=== PATIENT | female | born 1975 | race Caucasian/White ===

== ENCOUNTER 2017-01-22 19:49 | Emergency (ER) | payer MEDICAID ==
[2017-01-22 20:24] LABS: URINE APPEARANCE CLEAR; URINE BILIRUBIN NEGATIVE (NEGATIVE); URINE BLOOD LARGE (NEGATIVE); URINE COLOR YELLOW; URINE GLUCOSE (UA) NEGATIVE (NEGATIVE); URINE KETONE NEGATIVE (NEGATIVE); URINE LEUKOCYTE ESTERASE LARGE (NEGATIVE); URINE NITRITE NEGATIVE (NEGATIVE); URINE PROTEIN TRACE (NEGATIVE); URINE UROBILINOGEN 0.2 E.U./dL (0.20 - 1.00)
[2017-01-22 20:31] LABS: URINE BACTERIA 1+; URINE EPITHELIAL CELLS 0 - 2 (FEW); URINE WBC >50 (0-2/hpf)
[2017-01-22] MEDS: 0.9 % SODIUM CHLORIDE 1,000 ML BAG IV ONE (21:10)
[2017-01-22] MEDS: ONDANSETRON HCL IV 4 MG/2 ML VIAL IV ONE (21:11)
[2017-01-22] MEDS: HYDROMORPHONE HCL 1 MG/ML CPJ IVP ONE (21:15)
[2017-01-22 21:21] LABS: BASO % 0.4 % (0-6); EOS % 3.1 % (0-6); HEMATOCRIT 41.6 % (35.0-47.0); HEMOGLOBIN 13.9 gm/dl (11.6-16.0); LYMPH % 29.6 % (16-45); MEAN CELL VOLUME 88.3 fl (81-97); MEAN CORPUSCULAR HEMOGLOBIN 29.5 pg (27-33); MEAN CORPUSCULAR HGB CONC 33.4 g/dl (32-36); MEAN PLATELET VOLUME 10.5 fl (7.4-10.4); MONO % 6.9 % (0-9); PLATELET COUNT 336 K/uL (130-400); RED BLOOD COUNT 4.71 M/uL (3.80-5.40); RED CELL DISTRIBUTION WIDTH 13.8 % (11.5-14.5); WHITE BLOOD COUNT W/O DIFF 12.1 K/uL (4.2-12.2)
[2017-01-22 21:32] LABS: ANION GAP 6.8 (7-16); BLOOD UREA NITROGEN 5 mg/dL (7-17); CARBON DIOXIDE 25.2 mmol/L (22-30); CREATININE 0.7 mg/dL (0.52-1.04); EST GLOMERULAR FILTRATION RATE > 60 ml/min; GLUCOSE,RANDOM 96 mg/dL (70-110)
[2017-01-22] MEDS: ONDANSETRON HCL IV 4 MG/2 ML VIAL IVP ONE (21:44)
--- NOTE | 2017-01-22 21:47 | Emergency Department Record ---
History of Present Illness - General Chief complaint: Flank Pain Stated complaint: POSS KIDNEY STONES Time Seen by Provider: 01/22/17 20:42 Source: Patient Mode of Arrival: Ambulatory Limitations: No limitations - History of Present Illness Initial comments: pt is having bilateral flank pain and thinks she has kidney stones. she states she had signs of a uti and then had gravel in the toilet. she has had nausea but no vomiting. MD Complaint: Other Onset/Timin -: Days(s) Location: Suprapubic Radiation: L flank, R flank Severity scale (1-10): 6 Quality: Sharp Consistency: Intermittent Worsens with: Urination Patient : No LMP Date: 01/03/17 Gestational Age (wks) based on LMP: 2 Associated Symptoms: Nausea/vomiting - Related Data Home Medications Medication Instructions Recorded Confirmed Last Taken Fluticasone Propionate [Flovent 50 mcg IH DAILY 01/27/16 01/27/16 Unknown Diskus] Naproxen [Naprosyn] 250 mg PO Q12H 01/22/17 01/22/17 Unknown Previous Rx's Medication Instructions Recorded Cephalexin [Keflex] 500 mg PO BID #14 cap 01/22/17 Allergies Allergy/AdvReac Type Severity Reaction Status Date / Time codeine Allergy ANAPHYLAXIS Verified 01/27/16 17:31 Penicillins Allergy ANAPHYLAXIS Verified 01/27/16 17:31 prednisone Allergy BEHAVIORAL Verified 01/27/16 17:31 CHANGES sulfamethoxazole Allergy SWELLING Verified 01/22/17 21:07 [From Bactrim] (GENERAL) trimethoprim [From Bactrim] Allergy SWELLING Verified 01/22/17 21:07 (GENERAL) ibuprofen AdvReac HYPERSENSIT Verified 01/27/16 17:31 IVITY Travel Screening - Travel/Exposure Within Last 30 Days Have you traveled within the last 30 days?: No - Travel Symptoms Symptom Screening: None Review of Systems Reviewed: No additional complaints except as noted below Constitutional: Reports: As per HPI. Denies: Chills, Fever, Malaise, Night sweats, Weakness, Weight change Eyes: Reports: As per HPI. Denies: Eye discharge, Eye pain, Photophobia, Vision change ENT: Reports: As per HPI. Denies: Congestion, Dental pain, Ear pain, Epistaxis , Hearing loss, Throat pain Respiratory: Reports: As per HPI. Denies: Cough, Dyspnea, Hemoptysis, Stridor, Wheezes Cardiovascular: Reports: As per HPI. Denies: Arrhythmia, Chest pain, Dyspnea on exertion, Edema, Murmurs, Orthopnea, Palpitations, Paroxysmal nocturnal dyspnea, Rheumatic Fever, Syncope Endocrine: Reports: As per HPI. Denies: Fatigue, Heat or cold intolerance, Polydipsia, Polyuria Gastrointestinal: Reports: As per HPI. Denies: Abdominal pain, Constipation, Diarrhea, Hematemesis, Hematochezia, Melena, Nausea, Vomiting Genitourinary: Reports: As per HPI. Denies: Abnormal menses, Discharge, Dyspareunia, Dysuria, Frequency, Hematuria, Incontinence, Retention, Urgency Musculoskeletal: Reports: As per HPI. Denies: Arthralgia, Back pain, Gout, Joint swelling, Myalgia, Neck pain Skin: Reports: As per HPI. Denies: Bruising, Change in color, Change in hair/ nails, Lesions, Pruritus, Rash Neurological: Reports: As per HPI. Denies: Abnormal gait, Confusion, Headache, Numbness, Paresthesias, Seizure, Tingling, Tremors, Vertigo, Weakness Psychiatric: Reports: As per HPI. Denies: Anxiety, Auditory hallucinations, Depression, Homicidal thoughts, Suicidal thoughts, Visual hallucinations Hematological/Lymphatic: Reports: As per HPI. Denies: Anemia, Blood Clots, Easy bleeding, Easy bruising, Swollen glands Past Medical History - SOCIAL HISTORY Smoking Status: Current every day smoker - RESPIRATORY Hx Respiratory Disorders: Yes Hx Asthma: Yes - CARDIOVASCULAR Hx Cardio Disorders: Yes Hx Heart Attack: Yes (2005) - NEURO Hx Neuro Disorders: Yes Hx Dizziness: Yes Hx Neuropathy: Yes - GI Hx GI Disorders: Yes Hx Reflux: Yes - Hx Genitourinary Disorders: No - ENDOCRINE Hx Endocrine Disorders: No - MUSCULOSKELETAL Hx Musculoskeletal Disorders: No - PSYCH Hx Psych Problems: Yes Hx Anxiety: Yes Hx Depression: Yes - HEMATOLOGY/ONCOLOGY Hx Hematology/Oncology Disorders: Yes Hx Anemia: Yes Family Medical History Any Significant Family History?: Yes Family Hx Comment (NOT TO BE USED IN PLACE OF ITEMS BELOW): Aunt w/brain issues Hx Diabetes: Grandparents Hx Heart Disease: Mother, Grandparents Hx Stroke: Mother Physical Exam - General General Appearance: Alert, Oriented x3, Cooperative, Mild distress - Head Head exam: Normal inspection - Eye Eye exam: Normal appearance, PERRL, EOMI Pupils: Normal accommodation - ENT ENT exam: Normal exam, Mucous membranes moist, Normal external ear exam, Normal orophraynx Ear exam: Normal external inspection. negative: External canal tenderness Nasal Exam: Normal inspection. negative: Discharge, Sinus tenderness Mouth exam: Normal external inspection, Tongue normal Teeth exam: Normal inspection. negative: Dental caries Throat exam: Normal inspection. negative: Tonsillar erythema, Tonsillar exudate - Neck Neck exam: Normal inspection, Full ROM. negative: Tenderness - Respiratory Respiratory exam: Normal lung sounds bilaterally. negative: Respiratory distress - Cardiovascular Cardiovascular Exam: Regular rate, Normal rhythm, Normal heart sounds - GI/Abdominal GI/Abdominal exam: Soft, Normal bowel sounds, Tenderness - Rectal Rectal exam: Deferred - exam: Deferred - Extremities Extremities exam: Normal inspection, Full ROM, Normal capillary refill. negative: Tenderness - Back Back exam: Reports: Normal inspection, Full ROM. Denies: Muscle spasm, Rash noted, Tenderness - Neurological Neurological exam: Alert, CN II-XII intact, Normal gait, Oriented X3 - Psychiatric Psychiatric exam: Normal affect, Normal mood - Skin Skin exam: Dry, Intact, Normal color, Warm Course Vital Signs 01/22/17 01/22/17 20:13 21:20 Temperature 97.9 F Pulse Rate [ 92 H 94 H Pulse Ox Probe] Respiratory 20 18 Rate Blood Pressure 132/102 125/91 [Left Arm] Pulse Ox 99 98 Medical Decision Making - Management Options MDM Management: Additional Work-up Planned (e.g. ADM/Transfer/OP Study) - Data Complexity MDM Data: Labs Ordered and/or Reviewed, X-Ray Ordered and/or Reviewed - Lab Data Result diagrams: 01/22/17 21:14 01/22/17 21:14 Lab Results 01/22/17 01/22/17 01/22/17 Range/Units 20:25 20:55 21:14 WBC 12.1 (4.2-12.2) K/uL RBC 4.71 (3.80-5.40) M/uL Hgb 13.9 (11.6-16.0) gm/dl Hct 41.6 (35.0-47.0) % MCV 88.3 (81-97) fl MCH 29.5 (27-33) pg MCHC 33.4 (32-36) g/dl RDW 13.8 (11.5-14.5) % Plt Count 336 (130-400) K/uL MPV 10.5 H (7.4-10.4) fl Gran % 60.0 (47-80) % Lymphocytes % 29.6 (16-45) % Monocytes % 6.9 (0-9) % Eosinophils % 3.1 (0-6) % Basophils % 0.4 (0-6) % Sodium (136-145) mmol/L Potassium (3.5-5.1) mmol/L Chloride (98-107) mmol/L Carbon Dioxide (22-30) mmol/L Anion Gap (7-16) BUN (7-17) mg/dL Creatinine (0.52-1.04) mg/dL Estimated GFR ml/min Random Glucose (70-110) mg/dL Calcium (8.5-10.1) mg/dL Urine Color Yellow Urine Appearance Clear Urine pH 5.5 (5.0-8.0) Ur Specific [place] 1.010 (1.002-1.030) Urine Protein Trace H (NEGATIVE) Urine Glucose (UA) Negative (NEGATIVE) Urine Ketones Negative (NEGATIVE) Urine Blood Large H (NEGATIVE) Urine Nitrite Negative (NEGATIVE) Urine Bilirubin Negative (NEGATIVE) Urine Urobilinogen 0.2 (0.20 - 1.00) E.U./dL Ur Leukocyte Esterase Large H (NEGATIVE) Urine RBC 10 - 15 (NONE SEEN) Urine WBC >50 (0-2/hpf) Ur Epithelial Cells 0 - 2 (FEW) Urine Bacteria 1+ Urine HCG, Qual Negative (NEGATIVE) 01/22/17 Range/Units 21:14 WBC (4.2-12.2) K/uL RBC (3.80-5.40) M/uL Hgb (11.6-16.0) gm/dl Hct (35.0-47.0) % MCV (81-97) fl MCH (27-33) pg MCHC (32-36) g/dl RDW (11.5-14.5) % Plt Count (130-400) K/uL MPV (7.4-10.4) fl Gran % (47-80) % Lymphocytes % (16-45) % Monocytes % (0-9) % Eosinophils % (0-6) % Basophils % (0-6) % Sodium 135 L (136-145) mmol/L Potassium 4.0 (3.5-5.1) mmol/L Chloride 103 (98-107) mmol/L Carbon Dioxide 25.2 (22-30) mmol/L Anion Gap 6.8 L (7-16) BUN 5 L (7-17) mg/dL Creatinine 0.7 (0.52-1.04) mg/dL Estimated GFR > 60 ml/min Random Glucose 96 (70-110) mg/dL Calcium 8.9 (8.5-10.1) mg/dL Urine Color Urine Appearance Urine pH (5.0-8.0) Ur Specific [place] (1.002-1.030) Urine Protein (NEGATIVE) Urine Glucose (UA) (NEGATIVE) Urine Ketones (NEGATIVE) Urine Blood (NEGATIVE) Urine Nitrite (NEGATIVE) Urine Bilirubin (NEGATIVE) Urine Urobilinogen (0.20 - 1.00) E.U./dL Ur Leukocyte Esterase (NEGATIVE) Urine RBC (NONE SEEN) Urine WBC (0-2/hpf) Ur Epithelial Cells (FEW) Urine Bacteria Urine HCG, Qual (NEGATIVE) - Radiology Data Radiology results: Report reviewed, Image reviewed Disposition Disposition: Discharge Clinical Impression: UTI (urinary tract infection) Qualifiers: Urinary tract infection type: acute cystitis Hematuria presence: with hematuria Qualified Code(s): N30.01 - Acute cystitis with hematuria Disposition: Home, Self-Care Condition: (1) Good Instructions: Urinary Tract Infection in Women (ED) Additional Instructions: follow up with family doctor. return sooner if worse. push fluids. Prescriptions: Cephalexin [Keflex] 500 mg PO BID #14 cap Forms: Patient Portal Access
[2017-01-22 22:45] LABS: ALBUMIN 4.4 gm/dL (3.5-5.0); BILIRUBIN,TOTAL 0.57 mg/dL (0.2-1.3); TOTAL PROTEIN 7.7 gm/dL (6.3-8.2)
[2017-01-22] MEDS: PROMETHAZINE HCL 25 MG/ML VIAL IVP ONE (22:49)
[2017-01-22] MEDS: CIPROFLOXACIN LACTATE/D5W 400 MG in DEXTROSE 1 BAG IVPB ONE (23:16)
[2017-01-22] MEDS: CEPHALEXIN 500 MG CAPSULE PO STA (23:39)
--- NOTE | 2017-01-25 07:35 | CT SCAN REPORT ---
EXAM: CT SCAN OF THE ABDOMEN AND PELVIS WITHOUT CONTRAST HISTORY: PATIENT HAS GENERALIZED ABDOMINAL PAIN. TECHNIQUE: Serial axial CT scan of the abdomen and pelvis was performed at 3.75 mm intervals from the dome of the diaphragm down to the pubic symphysis without the use of intravenous or oral contrast. Comparison: CT scan of the abdomen and pelvis dated 01/27/16 is provided. FINDINGS: The lung windows of the lung bases demonstrate no CT evidence of a focal infiltrate or pleural effusion. 3.4 mm nonspecific nodule within the right lateral lower lobe is unchanged with respect to the prior CT scan. The visualized heart size and contour is within normal limits. The liver demonstrates mild diffuse fatty infiltration. No suspicious focal hepatic lesions are identified. The size and contour of the liver is within normal limits. The spleen, pancreas, bilateral adrenal glands, and gallbladder are unremarkable. There is no CT evidence of hydronephrosis or hydroureter. No renal or ureteral calculi are identified. The contour, caliber and flow within the abdominal aorta is within normal limits. There is no CT evidence of retroperitoneal, pelvic, or inguinal lymphadenopathy. The bowel gas pattern is nonspecific and nonobstructive. Occasional colonic diverticula are noted without CT evidence of diverticulitis. The appendix is visualized and there is no CT evidence of appendicitis. There is no CT evidence of free intraperitoneal fluid or free intraperitoneal air. The urinary bladder is unremarkable. The uterus is unremarkable. The bone windows demonstrate no CT evidence of a fracture or dislocation of the visualized osseous structures of the abdomen and pelvis. IMPRESSION: 1. NO CT EVIDENCE OF AN ACUTE INTRAABDOMINAL PROCESS. 2. DIFFUSE HEPATIC STEATOSIS. JOB NUMBER: [id number] [facility]
== END 2017-01-22 23:48 | disposition home or self-care (01) ==
LOC: ER 19:49
DX: N30.01 Acute cystitis with hematuria (principal); R11.0 Nausea; R10.30 Lower abdominal pain, unspecified
CPT/HCPCS: 99284 ×2; 96376; 96365; 96375; 96361; 85025; 80076; 80048; 81001; 81025; 74176; J0744; J2405; J1170; J2550; J7030